=== PATIENT | male | born 1990 | race Caucasian/White ===

== ENCOUNTER 2020-11-13 12:37 | Emergency (ER) | payer BC ==
--- NOTE | 2020-11-13 14:42 | EDM.PDOC ---
ED HPI GENERAL MEDICAL PROBLEM - General Chief Complaint: General Stated Complaint: COUGHING, CONGESTION Time Seen by Provider: 11/13/20 14:23 Source of Information: Reports: Patient History Limitations: Reports: No Limitations - History of Present Illness INITIAL COMMENTS - FREE TEXT/NARRATIVE: 22-year-old male past medical history obesity presents for cough, chest congestion, loss of taste and smell, body aches x2 days. He notes positive exposure to coworkers that recently tested positive for COVID-19. He denies any significant difficulty breathing. back Pain Score (Numeric/FACES): 10 - Related Data Allergies Allergy/AdvReac Type Severity Reaction Status Date / Time No Known Allergies Allergy Verified 11/13/20 14:36 Home Meds: Home Meds . [No Known Home Meds] 11/13/20 [History] Past Medical History - Past Health History Medical/Surgical History: Denies Medical/Surgical History - Infectious Disease History Infectious Disease History: Reports: None Social & Family History - Tobacco Use Tobacco Use Status *Q: Never Tobacco User - Recreational Drug Use Recreational Drug Use: No ED ROS GENERAL - Review of Systems Review Of Systems: Comprehensive ROS is negative, except as noted in HPI. ED EXAM, GENERAL - Physical Exam Exam: See Below Exam Limited By: No Limitations General Appearance: Alert, WD/WN, No Apparent Distress Throat/Mouth: Normal Voice, No Airway Compromise Head: Atraumatic, Normocephalic Neck: Normal Inspection Respiratory/Chest: No Respiratory Distress, Lungs Clear, Normal Breath Sounds, No Accessory Muscle Use Cardiovascular: Normal Peripheral Pulses, Regular Rate, Rhythm Extremities: Normal Inspection Neurological: Alert, Normal Cognition, Normal Gait Psychiatric: Normal Affect, Normal Mood Skin Exam: Warm, Dry, Intact, Normal Color Course - Vital Signs Last Recorded V/S: Last Vital Signs Temp 97.6 F 11/13/20 14:30 Pulse 96 11/13/20 14:50 Resp 18 11/13/20 14:50 BP 140/85 11/13/20 14:50 Pulse Ox 96 11/13/20 14:50 - Orders/Labs/Meds Orders: Active Orders 24 hr Category Date Time Status Chest 1V Frontal [CR] Stat Exams 11/13/20 14:42 Taken Labs: Laboratory Tests 11/13/20 Range/Units 14:41 Influenza Type A RNA NEGATIVE (NEGATIVE) Influenza Type B RNA NEGATIVE (NEGATIVE) SARS-CoV-2 RNA ([facility]) POSITIVE H (NEGATIVE) - Re-Assessments/Exams Free Text/Narrative Re-Assessment/Exam: 11/13/20 14:43 Patient symptoms are concerning for COVID-19 infection. Will get Covid swab. Will get chest x-ray. Will follow up results and disposition accordingly. Patient is oxygenating well on room air. 11/13/20 15:55 Covid test is positive. Chest x-ray is unremarkable. Will discharge patient with monoclonal antibody infusion information. Return precautions discussed at length. Departure - Departure Time of Disposition: 15:55 Disposition: Home, Self-Care 01 Condition: Good Clinical Impression: COVID-19 - Discharge Information Instructions: COVID-19: What to Do If You Are Sick- [facility] (04/27/2020) Referrals: PCP,None [Primary Care Provider] - Forms: ED Department Discharge Additional Instructions: Your Covid test is positive. Your chest x-ray looks normal. You should get the outpatient monoclonal antibody infusion. This has been shown to prevent serious illness. I know you are young and otherwise healthy, but I have seen multiple people in their late 20s and early 30s and up on a ventilator and a few of them have . This is a very serious illness. If you are having worsening chest pain or difficulty breathing you need to come back to the ER for reassessment. The following information is given to patients seen in the emergency department who are being discharged to home. This information is to outline your options for follow-up care. We provide all patients seen in our emergency department with a follow-up referral. The need for follow-up, as well as the timing and circumstances, are variable depending upon the specifics of your emergency department visit. If you don't have a primary care physician on staff, we will provide you with a referral. We always advise you to contact your personal physician following an emergency department visit to inform them of the circumstance of the visit and for follow-up with them and/or the need for any referrals to a consulting specialist. The emergency department will also refer you to a specialist when appropriate. This referral assures that you have the opportunity for follow-up care with a specialist. All of these measure are taken in an effort to provide you with optimal care, which includes your follow-up. Under all circumstances we always encourage you to contact your private physician who remains a resource for coordinating your care. When calling for follow-up care, please make the office aware that this follow-up is from your recent emergency room visit. If for any reason you are refused follow-up, please contact the [facility] Emergency Department at and asked to speak to the emergency department charge nurse. Please follow up with your primary care physician. If you do not have a primary care physician, see below: [facility] [address] [place] [address] [phone] [facility] [address] [place] [address] [facility] [address], [place] [address] Sepsis Event Note (ED) - Evaluation Sepsis Screening Result: No Definite Risk - Focused Exam Vital Signs: Vital Signs Temp Pulse Resp BP Pulse Ox 11/13/20 14:50 96 18 140/85 96 11/13/20 14:30 97.6 F 100 16 165/95 H 98 - My Orders Last 24 Hours: My Active Orders 11/13/20 14:42 Chest 1V Frontal [CR] Stat - Assessment/Plan Last 24 Hours: My Active Orders 11/13/20 14:42 Chest 1V Frontal [CR] Stat
[2020-11-13 15:37] LABS: INFLUENZA A NAA NEGATIVE (NEGATIVE); INFLUENZA B NAA NEGATIVE (NEGATIVE)
[2020-11-13 15:43] LABS: CORONAVIRUS COVID-19 NAA POSITIVE (NEGATIVE)
[2020-11-13] MEDS ORDERED: Acetaminophen 500 MG Tab PO ONE (16:04)
[2020-11-13] MEDS ORDERED: Ibuprofen 600 MG Tab PO ONE (16:04)
--- NOTE | 2020-11-13 16:14 | CR ---
INDICATION: COVID positive. TECHNIQUE: Portable AP chest. COMPARISON: None. FINDINGS: Lungs are clear. Normal heart size and pulmonary vascularity. No pleural effusion. No pneumothorax. IMPRESSION: Normal chest. Dictated by Ezra Holt MD @ 11/13/2020 4:13:48 PM (Electronically Signed)
== END 2020-11-13 16:13 | disposition home or self-care (01) ==
LOC: MW.ED 12:37
DX: U07.1 COVID-19 (principal); E66.9 Obesity, unspecified; Z68.41 Body mass index [BMI] 40.0-44.9, adult
CPT/HCPCS: 0240U; 71045; 99283; A9270